=== PATIENT | female | born 2000 | race Caucasian/White ===

== ENCOUNTER 2023-10-30 20:36 | Emergency (ER) | payer BC ==
[~2023-10-30] VITALS: Ht 152.4 cm; Wt 72.6 kg
[2023-10-30] MEDS ORDERED: QUETIAPINE FUM100 MG PO (21:14)
[2023-10-30] MEDS ORDERED: SERTRALINE HCL100 MG PO (21:14)
[2023-10-30] MEDS ORDERED: TRAMADOL HCL 50 MG TABLET PO STA (23:21)
== END 2023-10-31 00:38 | disposition home or self-care (01) ==
LOC: ER 20:36
DX: S62.616A Displaced fracture of proximal phalanx of right little finger, initial encounter for closed fracture (principal); S00.81XA Abrasion of other part of head, initial encounter; W01.0XXA Fall on same level from slipping, tripping and stumbling without subsequent striking against object, initial encounter; Y93.89 Activity, other specified; Y92.480 Sidewalk as the place of occurrence of the external cause